=== PATIENT | female | born 2000 | race Caucasian/White ===

== ENCOUNTER 2021-02-14 12:17 | Emergency (ER) | payer OTHER ==
[~2021-02-14] VITALS: Ht 165.1 cm; Wt 108.9 kg
[2021-02-14 12:38] VITALS: BP 139/76
--- NOTE | 2021-02-14 12:50 | NUR ---
PT SENT TO LOBBY
[2021-02-14] MEDS ORDERED: KETOROLAC 60 MG/2 ML VIAL IM ONE (13:15)
--- NOTE | 2021-02-14 13:30 | NUR ---
20/F BIB SELF TO ED WITH C/O FATIGUE AND INTERMITTENT CHEST DISCOMFORT RADIATING TO HER BACK WHILE AT WORK THIS MORNING. REPORTS 4/10 PRESSURE PAIN. REPORTS ONE EPISODE OF VOMITING ONE HOUR AGO. DENIES SOB, FEVER OR CHILLS.
[2021-02-14] MEDS ORDERED: NAPR-1704 PO (14:10)
[2021-02-14] MEDS ORDERED: FAMO-92 PO (14:10)
--- NOTE | 2021-02-14 15:35 | NUR ---
Patient discharged with v/s stable. Written and verbal after care instructions given and explained. Patient alert, oriented and verbalized understanding of instructions. Ambulatory with steady gait. All questions addressed prior to discharge. ID band removed. Patient advised to follow up with PMD. Rx of PEPCID AND NAPROSYN given. Patient educated on indication of medication including possible reaction and side effects. Opportunity to ask questions provided and answered.
== END 2021-02-14 15:35 | disposition home or self-care (01) ==
LOC: MED 12:17
DX: R07.89 Other chest pain (principal); R11.10 Vomiting, unspecified; F17.200 Nicotine dependence, unspecified, uncomplicated; Z90.49 Acquired absence of other specified parts of digestive tract
CPT/HCPCS: 71045; 81025; 93005; 96372; 99283; J1885